=== PATIENT | male | born 1945 | race Caucasian/White ===

== ENCOUNTER → 2016-12-21 | Outpatient (CLI) | payer MEDICARE, BC ==
[~2016-12-21] MED LIST: ASPIR-TRIN325 MG PO; ASPIRIN81 MG PO; CARAFATE1 G PO; CIPRO PO; COLACE PO; FLOMAX0.4 M1 PO; GLIPIZIDE10 MG/BOTT PO; GLIPIZIDE2.5 MG/BOT PO; GLIPIZIDE5 MG/BOTT1 PO; GLUCOPHAGE500 M1 PO; LEVAQUIN750 MG PO; LINZESS145 MCG PO; LISINOPRIL10 MG PO; METFORMIN HCL500 M1 PO; OMEGA 3 FISH1 CAP.EC PO; OXYCODONE-APAP1 EACH PO; OXYIR5 MG PO; PERCOCET 7.5/321 TAB PO; PLAVIX PO; PYRIDIUM PO; SIMVASTATIN40 MG PO; TYLOX1 CAP 5/50 PO; ZESTRIL10 MG PO; ZOFRANODT SL; ZOLOFT50 MG PO
--- NOTE | ~2016-12-21 | CR7 ---
[facility]. [facility] A Service of [facility] & [facility] RADIOLOGY TEXT RESULTS PATIENT: CELINE HASSAN LOCATION: [facility] : 41 UNIT #: [id number] AGE: [address]: Archie Molina MD SEX: M ORDER DR: [id number] [place] [address] [id number] O MR#: [id number] Acc #: [id number] NAME: CELINE HASSAN : 1945 SEX: M STUDY DATE/TIME: 12/21/2016 10:43 UNIT: [facility] ROOM: STUDY DESCRIPTION: CR Abdomen Single AP View Attending Physician: Archie Molina M.D. Referring Physician: Archie Molina M.D. Ordering Physician: Archie Molina M.D. Primary Care Physician: No Primary Care Physician MEDICAL IMAGING REPORT This report is preliminary unless electronic signature is present. EXAM AP abdomen. HISTORY Urinary calculi. Abdomen pain for 6 months. FINDINGS AP radiograph of the abdomen demonstrates bowel gas pattern is normal. No bowel dilatation or displacement. No abnormal calcifications are identified, but bowel contents overlying and partly obscure both kidneys. Mild left lumbar curve. IMPRESSION No urinary calculi are identified, although, sensitivity is partly limited by bowel contents overlying and partly obscuring both kidneys. Mild left lumbar curve with mild multilevel hypertrophic changes in the lumbar spine. Dictated by... Richie Armstrong M.D. THIS IS AN ELECTRONICALLY VERIFIED REPORT Richie Armstrong M.D. at 12/21/2016 11:14 PM DALLIN/kirsty TD: 12/21/2016 23:10 JOB #: [id number] MEDICAL IMAGING REPORT Page 1 of 1
== END | disposition home or self-care (01) ==
LOC: SRAD 10:12
DX: R10.9 Unspecified abdominal pain (principal); Z87.442 Personal history of urinary calculi
CPT/HCPCS: 74000